=== PATIENT | female | born 1995 | race Caucasian/White ===

== ENCOUNTER 2020-09-08 20:06 | Emergency (ER) | payer MEDICAID | END 2020-09-08 23:19 | disposition left against medical advice (07) | LOC: DL.ED 20:06 | DX: Z53.21 Procedure and treatment not carried out due to patient leaving prior to being seen by health care provider (principal) ==

== ENCOUNTER 2023-09-18 21:53 | Emergency (ER) | payer MEDICAID ==
[2023-09-18] MEDS: Promethazine 25 MG Tab PO ONE (22:20)
[2023-09-18] MEDS: Albuterol/Ipratropium 3.0-0.5 MG/3 ML Neb Soln NEB ONE (22:21)
[2023-09-18 22:24] LABS: BASOPHILS PERCENT AUTO 0.3 % (0.0-1.0); EOSINOPHILS PERCENT AUTO 1.8 % (1.0-3.0); HEMATOCRIT 39.4 % (37.0-47.0); HEMOGLOBIN 13.3 g/dL (12.0-16.0); LYMPHOCYTES PERCENT AUTO 19.6 % (20.5-50.1); MEAN CORPUSCULAR HEMOGLOBIN 29.6 pg (27.0-34.0); MEAN CORPUSCULAR HGB CONC 33.8 g/dL (33.0-35.0); MEAN CORPUSCULAR VOLUME 87.8 fL (80-100); MONOCYTES PERCENT AUTO 8.1 % (2-8); NEUTROPHILS PERCENT AUTO 70.2 % (42.2-75.2); PLATELET COUNT,PLT 261 10^3/uL (150-450); RED BLOOD CELL COUNT 4.49 10^6/uL (4.2-5.4); WHITE BLOOD CELL COUNT,WBC 14.7 10^3/uL (5.0-10.0)
[2023-09-18] MEDS: Lactated Ringers 1,000 ML IV ONE (22:25)
[2023-09-18] MEDS: Sodium Chloride 0.9% 10 ML Syringe FLUSH PRN (22:26)
[2023-09-18 22:29] LABS: APPEARANCE,URINE CLEAR (CLEAR); BILIRUBIN,URINE NEGATIVE (NEGATIVE); COLOR,URINE YELLOW (YELLOW); GLUCOSE,URINE NEGATIVE (NEGATIVE); KETONES,URINE 80 (NEGATIVE); LEUKOCYTE ESTERASE,URINE NEGATIVE (NEGATIVE); NITRITE,URINE POSITIVE (NEGATIVE); OCCULT BLOOD,URINE NEGATIVE (NEGATIVE); PROTEIN,URINE NEGATIVE (NEGATIVE)
[2023-09-18 22:43] LABS: BACTERIA,URINE MANY /HPF (0-FEW/HPF); EPITHELIAL CELLS,URINE MODERATE /HPF (NOT SEEN); MUCUS,URINE FEW /LPF (NOT SEEN); RBC,URINE 0-5 /HPF (0-5); WBC,URINE 0-5 /HPF (0-5/HPF)
[2023-09-18 22:44] LABS: ALBUMIN 3.1 g/dL (3.4-5.0); ANION GAP 15.7 mEq/L (7-13); BILIRUBIN TOTAL 0.7 mg/dL (0.2-1.0); BUN/CREATININE RATIO 4.9 (No establ ref range); CREATININE 0.61 mg/dL (0.55-1.02); EST CRCL DRUG DOSING (CG) 119.62 mL/min; MAGNESIUM 1.7 mg/dL (1.8-2.4); POTASSIUM,K 3.7 mmol/L (3.5-5.1); PROTEIN TOTAL,TP 7.4 g/dL (6.4-8.2)
[2023-09-18 22:46] LABS: A/G RATIO 0.72
[2023-09-19] MEDS: Albuterol/Ipratropium 3.0-0.5 MG/3 ML Neb Soln NEB ONE (00:10)
[2023-09-19] MEDS: predniSONE 20 MG Tab PO ONE (00:17)
[2023-09-19] MEDS: Take Home: Promethazine 25 MG, 4 Tab Pack PO ONE (00:24)
== END 2023-09-19 01:10 | disposition home or self-care (01) ==
LOC: DL.ED 21:53
DX: O99.512 Diseases of the respiratory system complicating pregnancy, second trimester (principal); O21.2 Late vomiting of pregnancy; O99.891 Other specified diseases and conditions complicating pregnancy; O99.332 Smoking (tobacco) complicating pregnancy, second trimester; J45.901 Unspecified asthma with (acute) exacerbation; J06.9 Acute upper respiratory infection, unspecified; H65.93 Unspecified nonsuppurative otitis media, bilateral; F17.210 Nicotine dependence, cigarettes, uncomplicated; Z3A.24 24 weeks gestation of pregnancy; Z86.16 Personal history of COVID-19; Z79.899 Other long term (current) drug therapy; Z91.040 Latex allergy status; Z88.5 Allergy status to narcotic agent; Z91.013 Allergy to seafood; Z91.030 Bee allergy status; Z91.048 Other nonmedicinal substance allergy status; Z91.038 Other insect allergy status
CPT/HCPCS: 36415; 80053; 81001; 83735; 85025; 87086; 94640; 96360; 99284; 99284-25; A9270-GY; J3490; J7120; J7512; J7620-GY; U0002

== ENCOUNTER 2023-12-04 22:21 | Observation (INO) | payer MEDICAID ==
[2023-12-04 23:09] LABS: APPEARANCE,URINE CLOUDY (CLEAR); BILIRUBIN,URINE SMALL (NEGATIVE); COLOR,URINE YELLOW (YELLOW); GLUCOSE,URINE NEGATIVE (NEGATIVE); KETONES,URINE 40 (NEGATIVE); LEUKOCYTE ESTERASE,URINE MODERATE (NEGATIVE); NITRITE,URINE NEGATIVE (NEGATIVE); OCCULT BLOOD,URINE NEGATIVE (NEGATIVE); PROTEIN,URINE 100 (NEGATIVE)
[2023-12-04] MEDS: Lactated Ringers 1,000 ML IV ONE (23:09)
[2023-12-04] MEDS: Ondansetron 4 MG/2 ML SDV IVPUSH ONE (23:14)
[2023-12-04 23:24] LABS: BACTERIA,URINE MODERATE /HPF (0-FEW/HPF); CALCIUM OXALATE CRYSTALS,URINE MODERATE /HPF (NOT SEEN); EPITHELIAL CELLS,URINE MANY /HPF (NOT SEEN); MUCUS,URINE FEW /LPF (NOT SEEN); RBC,URINE 0-5 /HPF (0-5)
[2023-12-05] MEDS: Lactated Ringers 1,000 ML IV SCH (00:10)
[2023-12-05] MEDS: cefTRIAXone 1 GM Vial IVPUSH ONE (00:44)
[2023-12-05] MEDS: Acetaminophen 325 MG Tab PO STA (00:45)
[2023-12-05] MEDS: hydrOXYzine HCl 25 MG Tab PO ONE (00:45)
== END 2023-12-05 08:22 | disposition home or self-care (01) ==
LOC: DL.OBCHECK 22:21 → DL.OB 12-05 07:55
PROVIDERS: ADMIT Family Medicine; ATTEND Family Medicine
DX: O23.33 Infections of other parts of urinary tract in pregnancy, third trimester (principal); N39.0 Urinary tract infection, site not specified; Z3A.35 35 weeks gestation of pregnancy
CPT/HCPCS: 81001; 87086; 87210; A9270; J0696; J2405; J7120

== ENCOUNTER 2023-12-29 17:03 | Inpatient (IN) | payer MEDICAID ==
[2023-12-29] MEDS ORDERED: diphenhydrAMINE 50 MG/ML SDV IVPUSH PRN (19:44)
[2023-12-29] MEDS ORDERED: Acetaminophen 325 MG Tab PO PRN (19:44)
[2023-12-29] MEDS ORDERED: Tranexamic Acid 1,000 MG in Sodium Chloride 0.9% 100 ML IV PRN (19:44)
[2023-12-29] MEDS ORDERED: ePHEDrine 50 MG/ML SDV IVPUSH PRN (19:44)
[2023-12-29] MEDS ORDERED: Misoprostol 100 MCG Tab RECTAL PRN (19:44)
[2023-12-29] MEDS ORDERED: Naloxone 2 MG/2 ML Syringe IVPUSH PRN (19:44)
[2023-12-29] MEDS ORDERED: Ondansetron 4 MG/2 ML SDV IVPUSH PRN (19:44)
[2023-12-29] MEDS ORDERED: Methylergonovine 0.2 MG/1 ML Amp IM PRN (19:44)
[2023-12-29] MEDS ORDERED: Carboprost Tromethamine 250 MCG/1 ML Amp IM PRN (19:44)
[2023-12-29 20:08] LABS: HEMATOCRIT 37.5 % (37.0-47.0); HEMOGLOBIN 12.4 g/dL (12.0-16.0); MEAN CORPUSCULAR HEMOGLOBIN 28.5 pg (27.0-34.0); MEAN CORPUSCULAR HGB CONC 33.1 g/dL (33.0-35.0); MEAN CORPUSCULAR VOLUME 86.2 fL (80-100); RED BLOOD CELL COUNT 4.35 10^6/uL (4.2-5.4); WHITE BLOOD CELL COUNT,WBC 12.7 10^3/uL (5.0-10.0)
[2023-12-29] MEDS: Lactated Ringers 1,000 ML IV SCH (20:15)
[2023-12-29] MEDS: Simethicone 80 MG Tab.Chew PO SCH (22:23)
[2023-12-29] MEDS: Oxytocin/Normal Saline 30 UNIT/500 ML BAG IV SCH (22:32)
[2023-12-30] MEDS: Ketorolac 30 MG/ML SDV IVPUSH SCH (02:00)
[2023-12-30 06:04] LABS: HEMATOCRIT 35.4 % (37.0-47.0); HEMOGLOBIN 11.6 g/dL (12.0-16.0); MEAN CORPUSCULAR HEMOGLOBIN 28.5 pg (27.0-34.0); MEAN CORPUSCULAR HGB CONC 32.8 g/dL (33.0-35.0); RED BLOOD CELL COUNT 4.07 10^6/uL (4.2-5.4); WHITE BLOOD CELL COUNT,WBC 19.5 10^3/uL (5.0-10.0)
[2023-12-30] MEDS: Prenatal Multivitamin with Calcium/Folic Acid/Iron Tab PO SCH (08:26)
[2023-12-30] MEDS: Docusate Sodium 100 MG Cap PO PRN (08:26)
[2023-12-30] MEDS ORDERED: Phenylephrine 1% 10 MG/ML SDV IV ONE (16:03)
[2023-12-30] MEDS ORDERED: Tranexamic Acid 1,000 MG/10 ML Vial IV ONE (16:03)
[2023-12-30] MEDS ORDERED: Ondansetron 4 MG/2 ML SDV IV ONE (16:03)
[2023-12-30] MEDS ORDERED: Ropivacaine 100 ML EPIDUR ONE (16:03)
[2023-12-30] MEDS ORDERED: Morphine PF 10 MG/10 ML SDV EPIDUR ONE (16:03)
[2023-12-30] MEDS ORDERED: Oxytocin/Normal Saline 30 UNIT/500 ML BAG IV ONE (16:03)
[2023-12-30] MEDS ORDERED: Ketorolac 30 MG/ML SDV IVPUSH ONE (16:03)
[2023-12-30] MEDS: Acetaminophen/oxyCODONE 325-5 MG Tab PO PRN (21:25)
[2023-12-30] MEDS: ceFAZolin 2 GM Vial IVPUSH ONE (22:01)
[2023-12-30] MEDS: Ibuprofen 800 MG Tab PO PRN (22:40)
[2023-12-31] MEDS: Acetaminophen/oxyCODONE 325-5 MG Tab PO PRN (03:24)
== END 2023-12-31 16:46 | disposition home or self-care (01) | DRG 788 ==
LOC: DL.OBCHECK 17:03 → DL.MS 19:44 → UNDOADMOB 19:48 → DL.MS 19:48
PROVIDERS: ADMIT Family Medicine; ATTEND Family Medicine
PROC: 10D00Z1 Extraction of Products of Conception, Low, Open Approach (ICD-10-PCS; principal; 2023-12-29 20:15)
DX: O34.211 Maternal care for low transverse scar from previous cesarean delivery (principal); Z37.0 Single live birth; O99.52 Diseases of the respiratory system complicating childbirth; J45.40 Moderate persistent asthma, uncomplicated; Z3A.38 38 weeks gestation of pregnancy; O99.344 Other mental disorders complicating childbirth; F31.9 Bipolar disorder, unspecified; O69.81X0 Labor and delivery complicated by cord around neck, without compression, not applicable or unspecified
CPT/HCPCS: 01961; 36415; 85027; 86850; 86900; 86901; A9270-GY; J0690; J1885; J2274; J2371; J2405; J2590; J2795; J3490; J7120